=== PATIENT | female | born 1960 | race Caucasian/White ===

== ENCOUNTER → 2018-02-17 | Outpatient (CLI) | payer OTHER | END | disposition home or self-care (01) | LOC: CFH 07:43 | PROVIDERS: ATTEND Nurse Practitioner | DX: Z12.31 Encounter for screening mammogram for malignant neoplasm of breast (principal); Z13.820 Encounter for screening for osteoporosis; M85.88 Other specified disorders of bone density and structure, other site; Z78.0 Asymptomatic menopausal state; Z80.3 Family history of malignant neoplasm of breast | CPT/HCPCS: 77080; 77067 ==

== ENCOUNTER 2018-07-06 15:25 | Outpatient (CLI) | payer OTHER ==
[2018-07-06] MEDS ORDERED: CLON0.5T11 PO (16:07)
[2018-07-06] MEDS ORDERED: GABA600T7 PO (16:07)
[2018-07-06] MEDS ORDERED: CELE200C PO (16:07)
[2018-07-06] MEDS ORDERED: LAMO100T PO (16:07)
[2018-07-06] MEDS ORDERED: MELO15TA24 PO (16:07)
[2018-07-06] MEDS ORDERED: QUET200T PO (16:07)
== END 2018-07-06 23:59 | disposition home or self-care (01) ==
LOC: STAR 15:25
PROVIDERS: ATTEND Orthopaedic Surgery
DX: Z02.9 Encounter for administrative examinations, unspecified (principal)

== ENCOUNTER 2018-07-11 10:56 | Day surgery (SDC) | payer OTHER ==
[~2018-07-11] VITALS: Ht 175.3 cm; Wt 130.9 kg
[~2018-07-11 10:56] MED LIST: CELE200C PO; CLON0.5T11 PO; GABA600T7 PO; LAMO100T PO; MELO15TA24 PO; QUET200T PO
[2018-07-11] MEDS ORDERED: LIDOCAINE 1%-EPI 1:100K, 30ML ONE (10:57)
[2018-07-11] MEDS ORDERED: ROPIvacaine/PF 0.5%, 30 ML ONE (11:04)
[2018-07-11 11:20] VITALS: BP 151/90
[2018-07-11] MEDS ORDERED: LACTATED RINGERS 1,000 ML IV SCH (11:28)
[2018-07-11] MEDS ORDERED: GABAPENTIN 300 MG CAPSULE PO ONE (11:30)
[2018-07-11] MEDS ORDERED: ACETAMINOPHEN 500 MG TABLET PO ONE (11:30)
[2018-07-11] MEDS ORDERED: SCOPOLAMINE PATCH, 1.5MG PATCH.TD72 TD ONE (11:30)
[2018-07-11] MEDS ORDERED: DEXAMETHASONE 4 MG/ML, 1ML ONE (11:42)
[2018-07-11] MEDS ORDERED: CEFAZOLIN 1,000 MG ONE (11:42)
[2018-07-11] MEDS ORDERED: ONDANSETRON 2MG/ML, 2ML ONE (11:42)
[2018-07-11] MEDS ORDERED: PROPOFOL 10 MG/ML, 20ML ONE (11:42)
[2018-07-11] MEDS ORDERED: SUCCINYLCHOLINE 20 MG/ML, 10ML ONE (11:42)
[2018-07-11] MEDS ORDERED: hydrALAzine 20 MG/ML, 1ML IV PRN (12:00)
[2018-07-11] MEDS ORDERED: METOCLOPRAMIDE 5 MG/ML, 2ML IV PRN (12:00)
[2018-07-11] MEDS ORDERED: KETOROLAC 30 MG/1 ML IV PRN (12:00)
[2018-07-11] MEDS ORDERED: ONDANSETRON 2MG/ML, 2ML IVPush PRN (12:00)
[2018-07-11] MEDS ORDERED: ALBUTEROL SULFATE 2.5 MG/3 ML NPPB PRN (12:00)
[2018-07-11] MEDS ORDERED: MEPERIDINE/PF 25MG/0.5ML IVPush PRN (12:00)
[2018-07-11] MEDS ORDERED: PROMETHAZINE 25 MG/ML, 1ML IV PRN (12:00)
[2018-07-11] MEDS ORDERED: LABETALOL 5MG/ML, 20ML IV PRN (12:00)
[2018-07-11] MEDS ORDERED: OXYcodone 5 MG/5 ML ORAL.SOL UDC PO PRN (12:00)
[2018-07-11] MEDS ORDERED: OXYcodone 5 MG/5 ML ORAL.SOL UDC ONE (12:38)
[2018-07-11] MEDS ORDERED: FENTANYL PF 100 MCG/2ML ONE (12:38)
[2018-07-11] MEDS ORDERED: KETOROLAC 30 MG/1 ML ONE (12:41)
[2018-07-11] MEDS: FENTANYL PF 100 MCG/2ML IV PRN ×2 (12:43→12:48)
[2018-07-11] MEDS ORDERED: HYDROmorphone 2 MG/ML, 1ML ONE (12:44)
[2018-07-11] MEDS: HYDROmorphone 1 MG/ML, 1ML IV PRN ×4 (12:51→13:17)
[2018-07-11] MEDS ORDERED: LORazepam 2 MG/ML, 1ML ONE (12:57)
[2018-07-11] MEDS ORDERED: LORazepam 2 MG/ML, 1ML IVPush PRN (13:00)
== END 2018-07-11 15:05 | disposition home or self-care (01) ==
LOC: OUT 10:56
PROVIDERS: ATTEND Orthopaedic Surgery
DX: S83.242A Other tear of medial meniscus, current injury, left knee, initial encounter (principal); S83.252A Bucket-handle tear of lateral meniscus, current injury, left knee, initial encounter; M17.12 Unilateral primary osteoarthritis, left knee; M65.862 Other synovitis and tenosynovitis, left lower leg; Z91.013 Allergy to seafood; Z91.018 Allergy to other foods; Z87.891 Personal history of nicotine dependence; Z72.89 Other problems related to lifestyle; X58.XXXA Exposure to other specified factors, initial encounter; Y93.89 Activity, other specified; Y92.89 Other specified places as the place of occurrence of the external cause; Y99.8 Other external cause status
CPT/HCPCS: 29880; J0330; J0690; J1100; J1170; J1885; J2060; J2405; J2704; J2795; J3010; J3490; J7120

== ENCOUNTER → 2019-12-20 | Outpatient (CLI) | payer OTHER, BC ==
[~2019-12-20] MED LIST changes: +CLON-364 PO; -CLON0.5T11 PO; -LAMO100T PO; +LAMO100T8 PO
== END | disposition home or self-care (01) ==
LOC: CFH 08:22
PROVIDERS: ATTEND Nurse Practitioner
DX: M16.12 Unilateral primary osteoarthritis, left hip (principal); Z96.641 Presence of right artificial hip joint
CPT/HCPCS: 73523

== ENCOUNTER 2020-08-30 20:27 | Emergency (ER) | payer OTHER, BC ==
[~2020-08-30] VITALS: Ht 167.6 cm; Wt 105.0 kg
[2020-08-30] MEDS ORDERED: ROPINIROLE (20:31)
[2020-08-30] MEDS ORDERED: QUETIAPINE (20:31)
[2020-08-30] MEDS ORDERED: TRAZODONE (20:31)
[2020-08-30] MEDS ORDERED: ROBAXIN (20:31)
[2020-08-30] MEDS ORDERED: LAMOTRIGINE (20:31)
[2020-08-30] MEDS ORDERED: SODIUM CHLORIDE FLUSH 10ML SYR IVF ONE (21:00)
[2020-08-30] MEDS ORDERED: MAALOX/HYOSCYAMINE/LIDOCAINE 45 ML BTL PO ONE (21:00)
[2020-08-30] MEDS ORDERED: SODIUM CHLORIDE 0.9% 1,000ML IVBOLUS ONE (21:00)
[2020-08-30] MEDS ORDERED: FAMOTIDINE 20 MG/2 ML IVPush ONE (21:00)
[2020-08-30] MEDS ORDERED: ONDANSETRON 2MG/ML, 2ML IVPush ONE (21:00)
[2020-08-30] MEDS ORDERED: MAALOX/HYOSCYAMINE/LIDOCAINE 45 ML BTL ONE (21:06)
[2020-08-30] MEDS ORDERED: ONDANSETRON 2MG/ML, 2ML ONE (21:06)
[2020-08-30] MEDS ORDERED: FAMOTIDINE 20 MG/2 ML ONE (21:06)
[2020-08-30 21:07] LABS: BASOPHILS % (AUTO) 0 % (0-1); EOSINOPHILS % (AUTO) 3 % (1-7); LYMPHOCYTES % (AUTO) 36 % (22-44); MEAN CORPUSCULAR HEMOGLOBIN 31.1 pg (27.0-34.8); MEAN CORPUSCULAR HGB CONC 33.6 g/dL (32.4-35.8); MEAN PLATELET VOLUME 7.7 fL (7.4-10.4); MONOCYTES % (AUTO) 3 % (2-9); NEUTROPHILS % (AUTO) 58 % (42-75); PLATELET COUNT 362 x10^3/uL (130-400); RED BLOOD COUNT 5.12 x10^6/uL (3.82-5.3); RED CELL DISTRIBUTION WIDTH 13.6 % (9.6-15.2)
[2020-08-30 21:13] LABS: MD NO
[2020-08-30] MEDS ORDERED: MORPHINE SULFATE 4 MG/ML, 1ML ONE ×2 (21:16→22:52)
[2020-08-30 21:18] LABS: ALANINE AMINOTRANSFERASE 21 U/L (12-78); ALBUMIN 3.7 g/dL (3.4-5.0); ANION GAP 5 mmol/L (5-15); CALCIUM 9.4 mg/dL (8.5-10.1); CHLORIDE 108 mmol/L (98-107); CREATININE 0.87 mg/dL (0.55-1.02)
[2020-08-30 21:20] LABS: ALKALINE PHOSPHATASE 82 U/L (45-117); BILIRUBIN,TOTAL 0.4 mg/dL (0.2-1.0); TOTAL PROTEIN 7.1 g/dL (6.4-8.2)
[2020-08-30] MEDS: MORPHINE SULFATE 4 MG/ML, 1ML IVPush PRN ×2 (21:21→22:53)
--- NOTE | 2020-08-30 21:22 | NUR ---
BREAK RN: ASSUMED CARE OF PATIENT WHILE PRIMARY RN IS ON BREAK. REPORT GIVEN FROM ZEE NOWAK. PT RESTING IN ROOM. CONTINUOUS IMPROVEMENT COORDINATOR ON. NSR NOTED. CALL LIGHT IN PLACE. WILL CONTINUE TO MONITOR WHILE ZEE KHALIL IS ON BREAK.
--- NOTE | 2020-08-30 21:29 | NUR ---
BREAK RN: BEDSIDE REPORT GIVEN TO ZEE KHALIL
[2020-08-30] MEDS ORDERED: OMNIPAQUE 350 MG/ML, 100ML BOTTLE ONE (22:00)
[2020-08-31] MEDS ORDERED: METOCLOPRAMIDE 5 MG/ML, 2ML IVPush ONE
[2020-08-31 00:30] VITALS: BP 128/69
[2020-08-31] MEDS ORDERED: METOCLOPRAMIDE 5 MG/ML, 2ML ONE (00:37)
== END 2020-08-31 00:48 | disposition home or self-care (01) ==
LOC: ED 21:08
DX: K52.9 Noninfective gastroenteritis and colitis, unspecified (principal); E86.9 Volume depletion, unspecified; R10.13 Epigastric pain; R94.31 Abnormal electrocardiogram [ECG] [EKG]; R11.2 Nausea with vomiting, unspecified; Z91.013 Allergy to seafood
CPT/HCPCS: 36415; 74177; 80053; 83690; 85025; 93005; 96361; 96374; 96375; 96376; 99285; J2270; J2405; J2765; J7030; Q9967